=== PATIENT | female | born 1990 | race Caucasian/White ===

== ENCOUNTER 2017-01-26 12:41 | Emergency (ER) | payer SELFPAY ==
[~2017-01-26 12:41] MED LIST: MIRENA52 MG; MOTRIN 600600 MG/TAB PO; PERCOCET 325 MG1 TA2 PO; PRENATAL VITAMI1 TAB PO; ZOLOFT 100MG100 MG PO
[2017-01-26 12:45] VITALS: BP 139/80; PULSE 88; TEMP 97.3
== END 2017-01-26 12:51 | disposition home or self-care (01) ==
LOC: COL.ER 12:41
DX: S21.119D Laceration without foreign body of unspecified front wall of thorax without penetration into thoracic cavity, subsequent encounter (principal); X58.XXXD Exposure to other specified factors, subsequent encounter

== ENCOUNTER 2017-08-10 03:13 | Emergency (ER) | payer BC ==
[~2017-08-10] VITALS: Ht 177.8 cm; Wt 116.5 kg
[2017-08-10 03:19] VITALS: BP 135/85; TEMP 97.8
[2017-08-10] MEDS ORDERED: FASTIN30 MG PO (03:31)
[2017-08-10 03:56] LABS: COLLECTION METHOD CLEAN CATCH
[2017-08-10 04:10] LABS: PH 6 (5-8); URINE APPEARANCE Hazy; URINE BACTERIA None Seen /hpf; URINE BILIRUBIN Negative (NEGATIVE); URINE BLOOD 3+ (NEGATIVE); URINE COLOR Yellow; URINE GLUCOSE Negative (NEGATIVE); URINE KETONE Negative (NEGATIVE); URINE LEUKOCYTE ESTERASE Negative (NEGATIVE); URINE NITRATE Negative (NEGATIVE); URINE PROTEIN(semi-quant) 1+ (NEGATIVE); URINE RBC >50 /hpf; URINE UROBILINOGEN Negative (NEGATIVE)
[2017-08-10 04:33] LABS: BASO % 0.5 % (0.0-2.0); EOS # 0.1 (0.0-0.7); EOS % 2.1 % (0-4.0); GRAN % 60.2 % (42.2-75.2); HEMOGLOBIN 11.5 g/dl (12.5-16.0); LYMPH # 1.8 (1.2-3.4); LYMPH % 26.9 % (20.0-51.0); MEAN CELL VOLUME 86 fl (80.0-100.0); MEAN CORPUSCULAR HEMOGLOBIN 29 pg (27.0-31.0); MEAN CORPUSCULAR HGB CONC 34 g/dl (33.0-37.0); MEAN PLATELET VOLUME 9.7 fl (7.4-10.4); MONO # 0.7 (0.1-0.6); MONO % 9.8 % (1.7-9.3); PLATELET COUNT 294 K/mm3 (130-400); RED BLOOD COUNT 3.96 M/mm3 (4.10-5.30); REDCELL DISTRIBUTION WIDTH-CV 13.2 % (11.5-14.5)
[2017-08-10 04:34] LABS: HEMATOCRIT 33.9 % (37.0-47.0)
[2017-08-10 04:43] LABS: ALBUMIN 3.7 gm/dL (3.5-5.0); BILIRUBIN,TOTAL 0.6 mg/dL (0.0-1.0); CALCIUM 9.1 mg/dL (8.4-10.2); CREATININE, serum 0.6 mg/dL (0.52-1.25); POTASSIUM 3.4 mmol/L (3.4-5.0); TOTAL PROTEIN 7.3 gm/dL (6.4-8.2)
[2017-08-10] MEDS ORDERED: FLEXERIL 1010 MG/TAB PO (05:03)
[2017-08-10 05:18] VITALS: PULSE 77
== END 2017-08-10 05:15 | disposition home or self-care (01) ==
LOC: COL.ER 03:13
PROVIDERS: Emergency Medicine
DX: M54.6 Pain in thoracic spine (principal); K21.9 Gastro-esophageal reflux disease without esophagitis; E66.9 Obesity, unspecified; Z68.36 Body mass index [BMI] 36.0-36.9, adult
CPT/HCPCS: J1885; J2360

== ENCOUNTER 2018-06-12 06:16 | Day surgery (SDC) | payer BC ==
[~2018-06-12] VITALS: Ht 175.3 cm; Wt 106.2 kg
[~2018-06-12 06:16] MED LIST changes: +FASTIN30 MG PO; +FLEXERIL 1010 MG/TAB PO
[2018-06-12 06:49] VITALS: BP 124/84; PULSE 72; TEMP 97.7
[2018-06-12 11:14] VITALS: BP 121/77; PULSE 82; TEMP 97.1
--- NOTE | 2018-06-12 11:23 | NUR ---
PATIENT ARRIVES FROM OR VIA CART TO BAY 1. ALERT AND ORIENTED X 4. DENIES PAIN. RESPIRATIONS EVEN AND UNLABORED. LUNGS CLEAR BILATERALLY. CALL LIGHT IN REACH. POST OP VS STARTED.
[2018-06-12 11:30] VITALS: BP 121/74; PULSE 77
--- NOTE | 2018-06-12 11:31 | NUR ---
SPRITE AND CRACKERS GIVEN PER PATIETN REQUEST. CALL LIGHT REMAINS IN REACH.
[2018-06-12 11:45] VITALS: BP 122/77; PULSE 76
[2018-06-12] MEDS ORDERED: TYLENOL W/COD1 UDTAB PO (11:55)
[2018-06-12 12:00] VITALS: BP 123/74; PULSE 80; TEMP 98
--- NOTE | 2018-06-12 12:03 | NUR ---
CALL LIGHT IN REACH. DENIES NEEDS.
--- NOTE | 2018-06-12 12:51 | NUR ---
DISCHARGE INSTRUCTIONS GIVEN TO PATIENT AND SPOUSE, INCLUDING PRESCRIPTION. VERBALIZED UNDERSTANDING. IV DC'D. PATIENT LEFT AMBULATORY AND ESCORTED BY THIS NURSE TO PERSONAL [facility].
== END 2018-06-12 12:00 | disposition home or self-care (01) ==
LOC: SDCO 06:16
DX: M67.442 Ganglion, left hand (principal); Z87.891 Personal history of nicotine dependence; E66.9 Obesity, unspecified; Z68.33 Body mass index [BMI] 33.0-33.9, adult
CPT/HCPCS: J0690; J1885; J2250; J2405; J2704; J3010; J7120

== ENCOUNTER 2019-04-06 03:14 | Emergency (ER) | payer BC ==
[~2019-04-06] VITALS: Ht 177.8 cm; Wt 104.5 kg
[~2019-04-06 03:14] MED LIST changes: +TYLENOL W/COD1 UDTAB PO
[2019-04-06 03:17] VITALS: BP 143/96; TEMP 97
[2019-04-06 03:52] LABS: COLLECTION METHOD CLEAN CATCH
[2019-04-06 03:58] LABS: MUCOUS Present /lpf; PH 6 (5-8); URINE APPEARANCE Clear; URINE BACTERIA None Seen /hpf; URINE BILIRUBIN Negative (NEGATIVE); URINE BLOOD 1+ (NEGATIVE); URINE COLOR Yellow; URINE GLUCOSE Negative (NEGATIVE); URINE KETONE Negative (NEGATIVE); URINE LEUKOCYTE ESTERASE Negative (NEGATIVE); URINE NITRATE Negative (NEGATIVE); URINE PROTEIN(semi-quant) Negative (NEGATIVE); URINE UROBILINOGEN Negative (NEGATIVE)
[2019-04-06] MEDS ORDERED: PERCOCET 325 MG1 TA2 PO (04:34)
[2019-04-06 04:40] VITALS: PULSE 75
== END 2019-04-06 04:42 | disposition home or self-care (01) ==
LOC: COL.ER 03:14
PROVIDERS: Emergency Medicine
DX: M54.6 Pain in thoracic spine (principal); Z87.891 Personal history of nicotine dependence

== ENCOUNTER 2019-04-18 21:00 | Emergency (ER) | payer BC ==
[~2019-04-18] VITALS: Ht 177.8 cm; Wt 108.2 kg
[2019-04-18 21:04] VITALS: TEMP 97.2
[2019-04-18] MEDS ORDERED: PRENATAL TABLET PO (21:13)
[2019-04-18 21:54] VITALS: BP 124/74; PULSE 91
== END 2019-04-18 21:54 | disposition home or self-care (01) ==
LOC: COL.ER 21:00
DX: O9A.211 Injury, poisoning and certain other consequences of external causes complicating pregnancy, first trimester (principal); S93.401A Sprain of unspecified ligament of right ankle, initial encounter; Z3A.01 Less than 8 weeks gestation of pregnancy; X50.1XXA Overexertion from prolonged static or awkward postures, initial encounter; Y93.68 Activity, volleyball (beach) (court)

== ENCOUNTER 2019-07-15 09:42 | Observation (INO) | payer BC ==
[~2019-07-15] VITALS: Ht 180.3 cm; Wt 106.8 kg
[~2019-07-15 09:42] MED LIST changes: +PRENATAL TABLET PO
[2019-07-15 10:38] LABS: BASO % 0.1 % (0.0-2.0); EOS % 0.6 % (0-4.0); GRAN # 5.2 (1.4-6.5); GRAN % 75.7 % (42.2-75.2); HEMATOCRIT 41.6 % (37.0-47.0); HEMOGLOBIN 13.7 g/dl (12.5-16.0); LYMPH # 0.8 (1.2-3.4); LYMPH % 12.1 % (20.0-51.0); MEAN CELL VOLUME 85 fl (80.0-100.0); MEAN CORPUSCULAR HEMOGLOBIN 28 pg (27.0-31.0); MEAN CORPUSCULAR HGB CONC 33 g/dl (33.0-37.0); MEAN PLATELET VOLUME 9.1 fl (7.4-10.4); MONO # 0.8 (0.1-0.6); MONO % 11.4 % (1.7-9.3); PLATELET COUNT 358 K/mm3 (130-400); RED BLOOD COUNT 4.88 M/mm3 (4.10-5.30); REDCELL DISTRIBUTION WIDTH-CV 13.9 % (11.5-14.5)
[2019-07-15 10:46] LABS: ALBUMIN 4.4 gm/dL (3.5-5.0); BILIRUBIN,TOTAL 6.1 mg/dL (0.0-1.0); C-REACTIVE PROTEIN 1.3 mg/dL (0.0-0.9); CALCIUM 9.8 mg/dL (8.4-10.2); CREATININE, serum 0.64 (0.52-1.25); POTASSIUM 4.2 mmol/L (3.4-5.0); TOTAL PROTEIN 8.6 gm/dL (6.4-8.2)
[2019-07-15 12:34] LABS: COLLECTION METHOD CLEAN CATCH
[2019-07-15 12:56] LABS: PH 6 (5-8); SQUAMOUS EPITHELIAL 0-2 /hpf; URINE APPEARANCE Clear; URINE BACTERIA None Seen /hpf; URINE BILIRUBIN Negative (NEGATIVE); URINE BLOOD Negative (NEGATIVE); URINE COLOR Amber; URINE GLUCOSE Negative (NEGATIVE); URINE KETONE 1+ (NEGATIVE); URINE LEUKOCYTE ESTERASE Negative (NEGATIVE); URINE NITRATE Negative (NEGATIVE); URINE PROTEIN(semi-quant) Negative (NEGATIVE); URINE RBC 0-2 /hpf; URINE UROBILINOGEN Negative (NEGATIVE)
--- NOTE | 2019-07-15 13:15 | NUR ---
PATIENT ADMITED INTO ROOM 349 WITH A WADE FROM ER. A&O. VSS. RATES RIGHT ABD PAIN AT 4/10 AFTER RECEIVING PAIN MEDS IN ER. NPO. IV FLUIDS INFUSING VIA PUMP INTO LEFT AC PER ORDERS. HEAD TO TWO WNL. ORIENTED TO ROOM. CALL LIGHT IN REACH.
[2019-07-15 13:38] VITALS: BP 135/78; PULSE 75; TEMP 98
[2019-07-15 13:45] VITALS: BP 135/78; PULSE 75; TEMP 98
[2019-07-15 15:51] VITALS: BP 135/77; PULSE 63; TEMP 98
--- NOTE | 2019-07-15 17:55 | NUR ---
PATIENT CALLED OUT C/O PAIN, NAUSEA AND FEELING HOT. PATIENT GIVEN PRN IV ZOFRAN, ROOM TEMP TURNED DOWN AND EMESIS BASIN AT BEDSIDE. THEN, GAVE PRN IV DILAUDID IV FOR PAIN. WILL MONITOR
[2019-07-15 20:37] VITALS: BP 153/86; PULSE 64; TEMP 98.5
[2019-07-16] VITALS (14 sets, daily range): BP systolic 123–138; BP diastolic 71–94; PULSE 65–116; TEMP 97.7–98.1
--- NOTE | 2019-07-16 07:01 | NUR ---
Patient had a hard time with pain control at beginning of the shift. Dr. Blancas notified and ordered PRN Wall 5/325mg q6 hours. This appeared to help patient become more comfortable. KPad to back to assist with pain management. Patient independent in the room. Patient has been NPO since midnight with the exception of pain medication and small sip of water for swallowing. Patient denies any further needs. Will continue to monitor.
--- NOTE | 2019-07-16 07:20 | NUR ---
Lying in bed with eyes open watching TV. Reviewed consent with the patient for ERCP. Questions answered. Patient signs consent, will place on chart. Rates pain 6/10 in right upper abd and radiates into back, describes as sharp. Voices no needs at this time.
--- NOTE | 2019-07-16 08:46 | NUR ---
Patient having increased pain in right upper abd into back and requests pain medication. Dilaudid administered as prescribed.
--- NOTE | 2019-07-16 08:50 | NUR ---
Reveiwed consent for robotic anne, possible open. Questions answered. Patient signs consent. Consent placed on chart.
--- NOTE | 2019-07-16 11:02 | NUR ---
CAROLINA met with the patient to complete initial intake. The patient lives in [place] with her . The patient denies DME use and is independent with ADLs. The patient's PCP is Dr. Arnold and per EMR the patient receives medications from [facility]. The patient does not have advanced directives in the EMR and was not interested in the DPOA-HC form. The patient plans to return home at discharge with her providing transportation. There are no additional needs at this time.
--- NOTE | 2019-07-16 11:33 | NUR ---
First visit from the director of transportation. No needs right now.
--- NOTE | 2019-07-16 12:27 | NUR ---
Patient to surgery via bed at this time.
--- NOTE | 2019-07-16 16:19 | NUR ---
Patient to room via bed from surgery. Denies pain at this time. Lap sites x4 with montgomery set in place, edges well approximated, no redness/swelling/discharge. Patient denies needs currently.
--- NOTE | 2019-07-16 16:53 | NUR ---
Patient sitting up in bed, denies pain or needs. Patient spouse comes to hospital and picks up handwritten rx for Tramadol and will take to [facility] at this time to fill.
--- NOTE | 2019-07-16 17:42 | NUR ---
Patient ambulates to bathroom. Voids without difficulty. Returns to bed to eat supper. Denies further needs at this time.
--- NOTE | 2019-07-16 18:13 | NUR ---
Sitting up in bed with eyes open. Says she can feel the gas moving up into her shoulders. Explained that this is normal and the best way to relieve this pain is to walk. Patient verbalizes understanding and denies further needs.
--- NOTE | 2019-07-16 19:20 | NUR ---
Received report from ANTONIO Kulkarni. Pt is currently lying in bed. Pt has has her call ligth within reach and bed is in lowest position.
--- NOTE | 2019-07-16 20:05 | NUR ---
Pt currently lying in bed. Pt stated that she wasn't having any pain atht his time. She did state that earlier she was having some shoulder cruz. Pt lungs sounds were clearn and heart sounds were normal S2 and S2 sounds. Pt bowel sounds were hypoactive in all quads. Pt heart rate was running 108-113 which was passed along from ANTONIO Kulkarni from previous shift. Pt IV was discontinued at this time. pt has been tolerating fluids very well and hs voided. Pt has her call light within reach.
--- NOTE | 2019-07-16 20:12 | NUR ---
Pt was given her discharge packet. Pt was eduatied on activity as tolerated. She was also informed that she is able to shower in 24 hours. Education was given on her low fiber diet which she is on currently, she will continue this diet for 48 hours as she tolerates this she can advance to a regular diet. She was educated on her lap sites and how to care for them and when to contact the doctor. Pt IV to her left hand was discontinued and everything was intact upon removal.ANTONIO Kulkarni did inform me that pt has picked up her prescription and is getting it filled. Pt is going to get dressed and call us when her is downstairs. Pt call light is within reach.
--- NOTE | 2019-07-16 21:45 | NUR ---
Pt was transported to the ER entrance via wheelchair by the SHIRT LINE OPERATOR. pt has been tolerating her diet well, she has no drainage from her 4 lap sites edges are well approximaed. Pt has her education packet for discharge and her has taken her prescription to be filled. Pt is currently on low fiber dies and well advance as tolerated in 48 hours to a regular diet.
== END 2019-07-16 20:40 | disposition home or self-care (01) ==
LOC: COL.ER 09:42 → SURG 12:17
PROVIDERS: Nurse Practitioner; ADMIT Surgery
DX: K80.12 Calculus of gallbladder with acute and chronic cholecystitis without obstruction (principal); K82.1 Hydrops of gallbladder; F32.9 Major depressive disorder, single episode, unspecified; E66.9 Obesity, unspecified; Z68.32 Body mass index [BMI] 32.0-32.9, adult; Z87.891 Personal history of nicotine dependence; Z79.899 Other long term (current) drug therapy
CPT/HCPCS: C1769; G0378; J0330; J1100; J1170; J2250; J2405; J2543; J2704; J3010; J7030; Q9967

== ENCOUNTER 2019-07-25 10:20 | Day surgery (SDC) | payer BC ==
[2019-07-25] VITALS (8 sets, daily range): BP systolic 127–150; BP diastolic 92–106; PULSE 82–113; TEMP 97.3–98.9
[~2019-07-25] VITALS: Ht 180.3 cm; Wt 103.1 kg
[2019-07-25] MEDS ORDERED: FLEXERIL 1010 MG/TAB PO (10:51)
[2019-07-25] MEDS ORDERED: LEVAQUIN 5500 MG/TA1 PO (10:53)
--- NOTE | 2019-07-25 10:53 | NUR ---
TO RM AT 1030- CALL LIGHT IN REACH AT BEDSIDE.
[2019-07-25] MEDS ORDERED: SAXENDA6 MG/ML SQ (10:54)
--- NOTE | 2019-07-25 11:53 | NUR ---
Dr. Aranda is speaking with the patient's family at this time.
--- NOTE | 2019-07-25 12:00 | NUR ---
Patient arrives to [facility] via cart, accompanied by Endo RN Anel Cline. She is alert, sitting up in bed. She ambulates with standby assist to the chair in her room. Her gait is steady. She denies pain, nausea, or need. Monitoring is applied -VSS on room air. HR and BP were elevated on admission and throughout the procedure, per report. She requests and receives water to drink. Discharge plan is discussed. Patient may go home at 1344.
--- NOTE | 2019-07-25 12:30 | NUR ---
Patient is resting comfortably in her room. She denies pain or nausea. She has finished her glass of water and requests/receives a refill. Denies any other needs at this time.
--- NOTE | 2019-07-25 13:00 | NUR ---
Patient is resting comfortably in her room. VSS on room air. Denies any pain, nausea, or need.
--- NOTE | 2019-07-25 13:48 | NUR ---
Patient has met discharge criteria. She denies pain or nausea. Discharge instructions are discussed. She denies any questions and verbalizes understanding. PIV is removed with catheter intact and hemostasis achieved. She ambulates with steady gait to the restroom, voids, and returns to room. She changes to her clothing independently.
--- NOTE | 2019-07-25 13:55 | NUR ---
Patient is escorted to the exit via wheelchair by staff. She is discharged to home with ride in private vehicle at 1355.
== END 2019-07-25 13:55 | disposition home or self-care (01) ==
LOC: SDCO 10:20
DX: K80.50 Calculus of bile duct without cholangitis or cholecystitis without obstruction (principal); K31.89 Other diseases of stomach and duodenum; F32.9 Major depressive disorder, single episode, unspecified; Z87.891 Personal history of nicotine dependence
CPT/HCPCS: C1769; J2704; J7120; Q9967

== ENCOUNTER → 2020-07-22 | Outpatient (CLI) | payer BC ==
[~2020-07-22] MED LIST changes: +LEVAQUIN 5500 MG/TA1 PO; +SAXENDA6 MG/ML SQ
== END ==
LOC: COL.CARD 07:59
DX: R00.0 Tachycardia, unspecified (principal); R94.31 Abnormal electrocardiogram [ECG] [EKG]